=== PATIENT | male | born 1945 | race Native Hawaiian/Other Pacific Islander ===

== ENCOUNTER 2020-05-06 11:07 | Emergency (ER) | payer OTHER ==
[~2020-05-06] VITALS: Ht 182.9 cm; Wt 83.0 kg
[2020-05-06 13:06] VITALS: BP 146/87; TEMP 98.3
== END 2020-05-06 13:39 | disposition home or self-care (01) ==
LOC: ED 11:07
DX: F03.90 Unspecified dementia, unspecified severity, without behavioral disturbance, psychotic disturbance, mood disturbance, and anxiety (principal)
CPT/HCPCS: 99282